=== PATIENT | female | born 1940 | race Caucasian/White ===

== ENCOUNTER → 2018-04-01 20:50 | Outpatient (CLI) | payer MEDICARE ==
[2010-09-28 07:24] VITALS: BMI 27.5
[~2018-04-01 20:50] MED LIST: COLACE100 MG PO; ELIQUIS2.5 MG PO; FERROUS SULFAT325 MG PO; ISOSORBIDE MONO30 M1 PO; KEFLEX500 MG PO; NORCO-5 PO
[2018-04-17 13:40] VITALS: BMI 27.8
== END | disposition home or self-care (01) ==
LOC: D.LABREF 20:50
DX: M16.11 Unilateral primary osteoarthritis, right hip (principal); Z11.8 Encounter for screening for other infectious and parasitic diseases

== ENCOUNTER 2018-04-10 10:00 | Inpatient (IN) | payer MEDICARE ==
[~2018-04-10] VITALS: Ht 157.5 cm; Wt 69.1 kg
--- NOTE | ~2018-04-10 | OP ---
PATIENT NAME: CAROLINA QUINTANILLA MEDICAL RECORD: [id number] LOCATION:[id number] ADMISSION DATE:04/16/18 SURGEON: FLETCHER BORGES DO DATE OF OPERATION: 04/16/2018 PROCEDURE PERFORMED: Right total hip arthroplasty. PREOPERATIVE DIAGNOSIS: End-stage right hip osteoarthritis. POSTOPERATIVE DIAGNOSIS: End-stage right hip osteoarthritis. SURGEON: Fletcher Borges DO INDICATIONS: Ms. Quintanilla is a 77-year-old female who presented to my office a few weeks ago complaining of right hip pain. She had the left total hip done in the past and she is tired of the right hip bothering her. She was unable to flex it fully and internally rotate and it gave her pain when she did mostly when she would go from sit to a standing position and it was stiff. She said she was tired of dealing with this and is affecting her activities of daily living and asked if I would do her total hip. I informed her of the risks and benefits including infection, bleeding, need for further surgery, even , damage to the nerves and vessels, anterolateral thigh numbness, and she consented to the procedure. She was aware all those risks. DESCRIPTION OF PROCEDURE: The patient was taken to the operative suite, laid in supine position, given general anesthetic, given 2 grams Ancef preoperatively. The right hip was then prepped and draped after the patient had been moved over to the Oran table and positioned after she was prepped and draped, a timeout was performed and everyone was in agreement with the correct side, site, and patient. The incision then began over the tensor fasciae latae muscle. Careful dissection was made down and coagulation of all bleeders was done. Dissection was made to the tensor fascia bia fascia. The fascia was then incised and the fascia was taken superior and the muscle belly inferior and then the interval between the rectus femoris was entered and the fascia over the rectus femoris was incised and the rectus was taken medially and the tensor fascia bia laterally and the ascending branch of the lateral femoral-circumflex artery was encountered, tied off, and cut and also the Aquamantys was used on it. All bleeders were coagulated. Then, the femoral neck was exposed, doing a capsulotomy and then tagging it and the neck cut was then made with the retractors inside the capsule and around the neck, the head was then extracted after corkscrew was used to go into the neck. Once the head was removed, the acetabulum was exposed. The labrum was removed as well as the ligamentum teres and the pulvinar and then reaming began medializing first and then reaming up to a 50. The 50 cup was then put into place with a liner in it and the cup placement was done under fluoroscopy and seen to be in adequate position. Once the cup was seen to be in adequate position and the liner had been placed, the femur was exposed. The hook was used to expose the femur. Retractors were put into place and then a canal finder and cookie cutter were used on the femoral canal. I then broached up to a 7 size and trialed with a -3 neck and it appeared to be good and a good fit. A #7 implant was then trialed again with a -3 neck and on the x-ray of the pelvis, this seemed to be at equal lengths on the right and left on x-ray. OPERATIVE REPORT [id number] CAROLINA QUINTANILLA After that was done, the femur was x-rayed as well to ensure there were no cracks and they were not. Then, the real implant was put in and x-rays were taken again and it seemed to be in the same position having equal lengths on the legs. The wound was then thoroughly, thoroughly irrigated and Surgicel beads were put in place. The capsule was then closed with Ethibond suture #2 Ethibond and then the tensor fascia bia fascia was closed with 0 Vicryl, first in 2 [id number] stitches then a running stitch and the skin was closed with 2-0 Vicryl and 4-0 Monocryl ran on the skin and Prineo on the skin and then a Telfa and Tegaderm were placed over the wound. After that was done, the patient was awakened and taken to the recovery in stable condition. COMPLICATIONS: None. BLOOD LOSS: Approximately 200 mL. 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
[~2018-04-10 10:00] MED LIST changes: -COLACE100 MG PO; -ELIQUIS2.5 MG PO; -FERROUS SULFAT325 MG PO; -KEFLEX500 MG PO; -NORCO-5 PO
[2018-04-10 11:45] LABS: BASOPHILS 0.3 % (0-2); EOSINOPHILS 2.2 % (0-7); HEMATOCRIT 43.6 % (36.0-48.0); HEMOGLOBIN 14.2 g/dL (12-16); LYMPHOCYTES 28.8 % (15-50); MCH 30.9 pg (26.0-34.0); MCHC 32.6 g/dL (31.0-37.0); MCV 94.8 fL (80.0-100.0); MEAN PLATELET VOLUME 9.1 fL (7.4-10.4); MONOCYTES 7.7 % (2-11); RDW 12.6 % (11.5-14.5)
[2018-04-10 11:47] LABS: APPEARANCE CLEAR (CLEAR); BILIRUBIN NEGATIVE (NEGATIVE); COLOR YELLOW (YELLOW); GLUCOSE NEGATIVE (NEGATIVE); KETONE NEGATIVE (NEGATIVE); NITRITE NEGATIVE (NEGATIVE); PROTEIN NEGATIVE (NEGATIVE); UROBILINOGEN NORMAL (NORMAL)
[2018-04-10 11:55] LABS: CALCIUM 9.2 mg/dL (8.5-10.1); CARBON DIOXIDE 32.3 mmol/L (21.0-32.0); CREATININE - SERUM 0.9 mg/dL (0.6-1.3); POTASSIUM - SERUM 4.3 mmol/L (3.5-5.1)
[2018-04-10 11:57] LABS: APTT 39.5 SECONDS (22.8-39.4); INR 0.99 (0.85-1.17); PROTIME 12.7 SECONDS (11.6-15.0)
[2018-04-10 12:15] LABS: PLATELET COUNT 266 10x3/uL (130-400)
[2018-04-16] MEDS ORDERED: FERROUS SULFAT325 MG PO (12:47)
[2018-04-16] MEDS ORDERED: COLACE100 MG PO (12:48)
[2018-04-16 12:58] VITALS: BP 129/78; BMI 27.8
[2018-04-16 18:52] VITALS: BP 132/57
[2018-04-16 20:23] VITALS: BP 123/62
[2018-04-17 04:00] VITALS: BP 95/47
[2018-04-17 09:09] VITALS: BP 93/52
[2018-04-17 12:14] VITALS: BP 75/41
[2018-04-17 12:21] LABS: HEMATOCRIT 34.8 % (36.0-48.0); HEMOGLOBIN 11.4 g/dL (12-16); MCH 30.6 pg (26.0-34.0); MCHC 32.8 g/dL (31.0-37.0); MCV 93.3 fL (80.0-100.0); MEAN PLATELET VOLUME 9.8 fL (7.4-10.4); RBC 3.73 10x6/uL (4.00-5.40); RDW 12.6 % (11.5-14.5)
[2018-04-17 13:40] VITALS: BP 84/39; Ht 157.5 cm; Wt 69.1 kg
[2018-04-17 15:45] VITALS: BP 101/46
[2018-04-17 16:57] LABS: ALBUMIN 3.1 g/dL (3.4-5.0); ALKALINE PHOSPHATASE 46 U/L (46-116); ALT (SGPT) 19 U/L (10-68); BILIRUBIN - TOTAL 0.48 mg/dL (0.2-1.3); CALC OSMOLALITY 268 mosm/kg (275-300); CALCIUM 7.9 mg/dL (8.5-10.1); CARBON DIOXIDE 23.8 mmol/L (21.0-32.0); CHLORIDE - SERUM 99 mmol/L (98-107); CREATININE - SERUM 0.7 mg/dL (0.6-1.3); POTASSIUM - SERUM 4.4 mmol/L (3.5-5.1); SODIUM 133 mmol/L (136-145); UREA NITROGEN 14 mg/dL (7-18); eGFR NON AFRICAN AMERICAN 86 mL/min (90-120)
[2018-04-17 16:58] LABS: GLUCOSE 135 mg/dL (74-106)
[2018-04-17 20:00] VITALS: BP 93/41
[2018-04-18] VITALS: BP 108/60
[2018-04-18 04:00] VITALS: BP 102/54
[2018-04-18 05:41] LABS: BASOPHILS 0.1 % (0-2); EOSINOPHILS 1.4 % (0-7); HEMATOCRIT 30.5 % (36.0-48.0); HEMOGLOBIN 9.8 g/dL (12-16); IMMATURE GRANULOCYTES 0.3 % (0-5); LYMPHOCYTES 13.3 % (15-50); MCH 30.1 pg (26.0-34.0); MCHC 32.1 g/dL (31.0-37.0); MCV 93.6 fL (80.0-100.0); MEAN PLATELET VOLUME 9.2 fL (7.4-10.4); MONOCYTES 8.9 % (2-11); PLATELET COUNT 194 10x3/uL (130-400); RBC 3.26 10x6/uL (4.00-5.40); RDW 12.6 % (11.5-14.5); WBC 7.1 10x3/uL (4.8-10.8)
[2018-04-18 06:43] LABS: ALBUMIN 2.7 g/dL (3.4-5.0); ANION GAP 11.2 mmol/L (8-16); BILIRUBIN - TOTAL 0.2 mg/dL (0.2-1.3); CALCIUM 7.9 mg/dL (8.5-10.1); CARBON DIOXIDE 27.7 mmol/L (21.0-32.0); CREATININE - SERUM 0.8 mg/dL (0.6-1.3); POTASSIUM - SERUM 3.9 mmol/L (3.5-5.1); PROTEIN - SERUM 5.8 g/dL (6.4-8.2)
[2018-04-18 08:24] VITALS: BP 133/77
[2018-04-18 12:01] VITALS: BP 94/46
[2018-04-18 16:54] VITALS: BP 88/42
[2018-04-18 20:00] VITALS: BP 109/50
[2018-04-19 04:00] VITALS: BP 105/63
[2018-04-19 06:00] LABS: BASOPHILS 0.3 % (0-2); EOSINOPHILS 3.1 % (0-7); HEMOGLOBIN 9.4 g/dL (12-16); IMMATURE GRANULOCYTES 0.3 % (0-5); LYMPHOCYTES 14.6 % (15-50); MCH 30.3 pg (26.0-34.0); MCHC 32.4 g/dL (31.0-37.0); MCV 93.5 fL (80.0-100.0); MEAN PLATELET VOLUME 9.1 fL (7.4-10.4); MONOCYTES 9.3 % (2-11); NEUTROPHILS 72.4 % (40-80); PLATELET COUNT 187 10x3/uL (130-400); RDW 12.8 % (11.5-14.5); WBC 7.5 10x3/uL (4.8-10.8)
[2018-04-19 06:14] LABS: ALBUMIN 2.5 g/dL (3.4-5.0); ALKALINE PHOSPHATASE 44 U/L (46-116); ALT (SGPT) 19 U/L (10-68); BILIRUBIN - TOTAL 0.23 mg/dL (0.2-1.3); CALC OSMOLALITY 278 mosm/kg (275-300); CARBON DIOXIDE 31.5 mmol/L (21.0-32.0); CHLORIDE - SERUM 105 mmol/L (98-107); CREATININE - SERUM 0.7 mg/dL (0.6-1.3); GLUCOSE 114 mg/dL (74-106); POTASSIUM - SERUM 4.3 mmol/L (3.5-5.1); PROTEIN - SERUM 5.8 g/dL (6.4-8.2); SODIUM 139 mmol/L (136-145); UREA NITROGEN 13 mg/dL (7-18); eGFR NON AFRICAN AMERICAN 86 mL/min (90-120)
[2018-04-19] MEDS ORDERED: NORCO-5 PO (07:11)
[2018-04-19] MEDS ORDERED: KEFLEX500 MG PO (07:11)
[2018-04-19] MEDS ORDERED: ELIQUIS2.5 MG PO (07:11)
[2018-04-19 08:22] VITALS: BP 131/56
== END 2018-04-19 13:34 | disposition home or self-care (01) | DRG 470 ==
LOC: D.SDCHOLD 04-16 10:00 → D.MS 04-16 11:20 → D.SDCHOLD 04-16 11:20 → D.MS 04-16 18:49
PROVIDERS: Anesthesiology; Family Medicine Adult Medicine; Orthopaedic Surgery
PROC: 0SR90JZ Replacement of Right Hip Joint with Synthetic Substitute, Open Approach (ICD-10-PCS; principal; 2018-04-16 13:30)
DX: M16.11 Unilateral primary osteoarthritis, right hip (principal); D62 Acute posthemorrhagic anemia